=== PATIENT | male | born 2000 | race Caucasian/White ===

== ENCOUNTER 2022-02-01 19:19 | Emergency (ER) | payer SELFPAY ==
[2022-02-01] MEDS ORDERED: Tetracaine HCl/PF 0.5% 4 ML Bottle EYEBOTH ONE (20:08)
[2022-02-01] MEDS ORDERED: Erythromycin Base 0.5% Ophth Oint 1 GM Tube EYERT ONE (20:29)
== END 2022-02-01 21:01 | disposition home or self-care (01) ==
LOC: MW.ED 19:19
DX: H10.021 Other mucopurulent conjunctivitis, right eye (principal); Z88.0 Allergy status to penicillin
CPT/HCPCS: 99283; A9270